=== PATIENT | female | born 1955 | race Caucasian/White ===

== ENCOUNTER 2024-06-21 09:46 | Day surgery (SDC) | payer MEDICARE ==
[2024-06-21 10:41] VITALS: RESP 16
[2024-06-21] MEDS ORDERED: Versed 2 MG/2 ML Injection ONE (11:13)
[2024-06-21] MEDS ORDERED: propofoL IV ONE ×2 (11:13→11:31)
[2024-06-21] MEDS ORDERED: SUBLIMAZE 100 MCG/2 ML ONE (11:20)
[2024-06-21 12:11] VITALS: TEMP 98.4
[2024-06-21 12:20] VITALS: BP 147/89; PULSE 55; O2SAT 99
--- NOTE | 2024-06-22 15:19 | OP ---
SURGERY DATE/TIME: 06/21/2024 [id number] PREOPERATIVE DIAGNOSIS: Positive Cologuard POSTOPERATIVE DIAGNOSES: 1) Colon polyps. 2) Diverticulosis. PROCEDURE: Colonoscopy with polypectomy. SURGEON: Jacques Johnson MD ANESTHESIA: IV anesthesia. PATIENT CONDITION: Stable. COMPLICATIONS: None. SPECIMEN: Polyp. INDICATION: The patient is a 69-year-old female with no prior colonoscopy that presents with a positive Cologuard, no symptoms. I discussed with the patient risks of infection, bleeding, perforation. She elected to proceed. FINDINGS: 1) Good preparation. 2) An 8-mm polyp. 3) Extensive diverticulosis, sigmoid. DESCRIPTION OF PROCEDURE AND FINDINGS: Patient was brought to the endoscopy suite. Routinely positioned and prepared. Time-out performed. IV anesthesia induced by Anesthesia. The external examination was normal. Digital rectal examination was normal. Colonoscope was inserted and advanced to the terminal ileum, confirmed by the terminal ileum, appendiceal orifice, ileocecal valve. The preparation was [place] good preparation. The withdrawal time was certainly over 6 minutes. On withdrawal, there was an 8-mm sessile hepatic flexure polyp which initially was biopsied with a forceps but it became more discrete that a hot snare was used, that is removed in completeness with a hot snare. That was hemostatic. On withdrawal, there was extensive sigmoid descending diverticulosis. Retroflexion normal. Scope was withdrawn. Patient tolerated the procedure well, was taken to Recovery. RECOMMENDATIONS: Follow up in office for the polyp pathology results. Probably would be a 3 to 5 year followup depending on pathology.
== END 2024-06-21 12:29 | disposition home or self-care (01) ==
LOC: SDC 09:46
PROVIDERS: ATTEND Surgery
DX: D12.3 Benign neoplasm of transverse colon (principal); R19.5 Other fecal abnormalities; K57.30 Diverticulosis of large intestine without perforation or abscess without bleeding
CPT/HCPCS: 99100; J2250; J2704; J3010